=== PATIENT | male | born 1965 | race Two or more races ===

== ENCOUNTER 2025-02-13 19:08 | Inpatient (IN) | payer MEDICAID, OTHER ==
[~2025-02-13] VITALS: Ht 170.2 cm; Wt 100.0 kg
--- NOTE | 2025-02-13 19:40 | ED.PDOC ---
History of Present Illness HPI Comments This is a 59-year-old male who comes in with chief complaint of seizure activity. The patient was found by a neighbor at his home somewhat altered. The patient had some emesis and there is a concern that the patient had a seizure. The patient has had a history of alcohol use in the past and has not had a drink in the past couple of days according to his family member. He was never had a seizure in the past. When the paramedics transported the patient he did have two seizures one lasting approximately 15 seconds in the other one about the same. He was given Versed 2.5 mg IV push EN route. The patient also had an Accu-Chek of 395. Upon arrival, the patient was still postictal and unable to answer questions appropriately. Chief Complaint: Seizure Time Seen by MD: 19:14 Reviewed Notes: Nurses Notes, Marketing Technology Specialist Notes, Medications, Allergies (No allergies to medication) Allergies: Coded Allergies: NO KNOWN ALLERGIES (Unverified , 02/13/25) Information Source: Emergency Med Personnel, Spouse Mode of Arrival: EMS Severity: Moderate Timing: Hours Duration: Intermittent Prehospital treatment: 12 Lead EKG, Accucheck (395), Office Executive, IVF, Other (Versed 2.5 mg IV push) Associated signs and symptoms The patient had two seizures and now the patient was postictal Past Medical History PAST MEDICAL HISTORY: DM, High Lipids, HTN Surgical History: Denies all surgeries Family History Family History: No family hx of Cancer, No family hx of DM, No family hx of Heart neha Social History Smoker: Non-Smoker Alcohol: Heavy (The patient has been sober for three weeks) Drugs: Denies Drug Use Lives In: Home Constitutional: denies: chills, diaphoresis, fatigue, fever, malaise, sweats, weakness, others EENTM: denies: blurred vision, double vision, ear bleeding, ear discharge, ear drainage, ear pain, ear ringing, eye pain, eye redness, hearing loss, mouth pain, mouth swelling, nasal discharge, nose bleeding, nose congestion, nose pain, photophobia, tearing, throat pain, throat swelling, voice changes, others Respiratory: denies: cough, hemoptysis, orthopnea, SOB at rest, shortness of breath, SOB with excertion, stridor, wheezing, others Cardiovascular: denies: chest pain, dizzy spells, diaphoresis, Dyspnea on exertion, edema, irregular heart beat, left arm pain, lightheadedness, palpitations, PND, syncope, others Gastrointestinal: denies: abdomen distended, abdominal pain, blood streaked bowels, constipated, diarrhea, dysphagia, difficulty swallowing, hematemesis, melena, nausea, poor appetite, poor fluid intake, rectal bleeding, rectal pain, vomiting, others Genitourinary: denies: burning, dysuria, flank pain, frequency, hematuria, incontinence, penile discharge, penile sore, pain, testicle pain, testicle swelling, urgency, others Neurological: reports: seizure; denies: dizziness, fainting, headache, left sided numbness, left sided weakness, numbness, paresthesia, pre-existing deficit, right sided numbness, right sided weakness, speech problems, tingling, tremors, weakness, others Musculoskeletal: denies: back pain, gout, joint pain, joint swelling, muscle pain, muscle stiffness, neck pain, others Integumetry: denies: bruises, change in color, change in hair/nails, dryness, laceration, lesions, lumps, rash, wounds, others Allergic/Immunocompromised: denies: Difficulty Healing, Frequent Infections, Hives, Itching, others Hematologic/Lymphatic: denies: anemia, blood clots, easy bleeding, easy bruising, swollen glands, others Endocrine: denies: excessive hunger, excessive sweating, excessive thirst, excessive urination, flushing, intolerance to cold, intolerance to heat, unexplained weight gain, unexplained weight loss, others Psychiatric: denies: anxiety, bipolar disorder, depression, hopeless, panic disorder, schizophrenia, sleepless, suicidal, others Physical Exam General Appearance: Mild Distress HEENT: Normal ENT Inspection, Pharynx Normal, TMs Normal Neck: Full Range of Motion, Non-Tender, Normal, Normal Inspection Respiratory: Chest Non-Tender, Lungs Clear, No Accessory Muscle Use, No Respiratory Distress, Normal Breath Sounds Cardiovascular: No Edema, No JVD, No Murmur, No Gallop, Normal Peripheral Pulses, Regular Rate/Rhythm Breast Exam: Deferred Gastrointestinal: No Organomegaly, Non Tender, No Pulsatile Mass, Normal Bowel Sounds, Soft Genitalia: Deferred Pelvic: Deferred Rectal: Deferred Extremities: No calf tenderness, Normal capillary refill, No pedal edema Musculoskeletal : Apperance: Normal Neurologic: choker setter II-XII nml as Tested, Motor Weakness, No Sensory Deficits, Other (The patient was currently sleeping and is postictal) Cerebellar Function: Normal Reflexes: Normal Skin: Dry, Normal Color, Warm Lymphatic: No Adenopathy Was a procedure done? Was a procedure done?: No EKG EKG : Pulse Rate (adult): 106 [place]: RAD Cardiac Rhythm: ST Differential Dx Considerations may include: Seizure, withdrawal seizures, syncope, CVA X-Ray, Labs, Meds, VS Vital Signs Date Time Temp Pulse Resp B/P (MAP) Pulse Ox O2 Delivery O2 Flow Rate FiO2 02/13/25 21:49 98 16 95 Room Air* 0 21 02/13/25 21:40 98.5 98 16 108/56 (73) 95 98.5 02/13/25 19:43 106 02/13/25 19:35 106 02/13/25 19:20 99.0 100 24 117/69 (85) 99 99.0 Lab Test 02/13/25 19:23 Range/Units White Blood Count 7.7 4.4-10.8 10^3/uL Red Blood Count 4.23 L 4.5-5.90 10^6/uL Hemoglobin 12.2 L 13.5-17.5 g/dL Hematocrit 37.5 L 41.0-53.0 % Mean Corpuscular Volume 88.7 80.0-100.0 fL Mean Corpuscular Hemoglobin 28.8 28.0-32.0 pg Mean Corpuscular Hemoglobin Concent 32.5 32.0-36.0 g/dL Red Cell Distribution Width 13.0 11.8-14.3 % Platelet Count 274 140-450 10^3/uL Mean Platelet Volume 7.6 6.9-10.8 fL Neutrophils (%) (Auto) 79.0 37.0-80.0 % Lymphocytes (%) (Auto) 13.9 10.0-50.0 % Monocytes (%) (Auto) 6.6 0.0-12.0 % Eosinophils (%) (Auto) 0.3 0.0-7.0 % Basophils (%) (Auto) 0.2 0.0-2.0 % Neutrophils # (Auto) 6.0 1.6-8.6 10 ^3/uL Lymphocytes # (Auto) 1.1 0.4-5.4 10 ^3/uL Monocytes # (Auto) 0.5 0-1.3 10 ^3/uL Eosinophils # (Auto) 0 0-0.8 10 ^3/uL Basophils # (Auto) 0 0-0.2 10 ^3/uL Nucleated Red Blood Cells 0.0 % Sodium Level 132 L 136-145 mmol/L Potassium Level 4.5 3.5-5.1 mmol/L Chloride Level 98 98-107 mmol/L Carbon Dioxide Level 18 L 20-31 mmol/L Anion Gap 16 H 5-15 Blood Urea Nitrogen 29 H 9-23 mg/dL Creatinine 1.30 0.700-1.30 mg/dL Glomerular Filtration Rate Calc 63 >90 mL/min BUN/Creatinine Ratio 22.3 H 10.0-20.0 Serum Glucose 361 H 74-106 mg/dL Calcium Level 9.7 8.7-10.4 mg/dL Plasma/Serum Blood Alcohol < 3.0 <10 mg/dL Current Medications Medications (Trade) Dose Ordered Sig/Sonny Route Start Time Stop Time Status Last Admin Sodium Chloride 1,000 ml @ 1,000 mls/hr Q1H ONCE IVB 02/13/25 19:15 02/13/25 20:14 DC 02/13/25 19:51 Levetiracetam 100 ml @ 400 mls/hr ONCE ONCE IV 02/13/25 19:15 02/13/25 19:29 DC 02/13/25 19:50 IV Hep-Lock was established Seizure precautions were placed on this patient The patient was being placed on Keppra 1 g IV piggyback The patient was CAT scan of the head is negative The chest x-ray is negative The patient was has been somewhat uncooperative here in the emergency department's At this time the patient was being discharged The patient understands and agrees with the management. Images Reviewed?: Images reviewed and evaluated by me Time of 1ST Reevaluation: 19:42 Reevaluation 1ST: Unchanged Time of 2ND Reevaluation: 22:01 Reevaluation 2ND: Improved Patient Education/Counseling: Diagnosis, Treatment, Prognosis, Need For Follow Up Family Education/Counseling: Diagnosis, Treatment, Prognosis, Need For Follow Up Departure 1 Departure Time of Disposition: 19:42 Impression: Primary Impression: Alcohol withdrawal syndrome Qualified Codes: F10.930 - Alcohol use, unspecified with withdrawal, uncomplicated Additional Impression: Electrolyte imbalance Disposition: HOME / SELF CARE / HOMELESS Condition: Fair Critical Care Note Critical Care Time?: No Stability Stability form required: No Heart Score Heart Score: Heart Score Response (Comments) Value History N/A 0 EKG N/A 0 Age N/A 0 Risk Factors N/A 0 Troponin N/A 0 Total 0 RAYMUNDO POWELL MD Feb 13, 2025 19:40
[2025-02-13 19:41] LABS: Basophils # (auto) 0 10 ^3/uL (0-0.2); Basophils % (auto) 0.2 % (0.0-2.0); Eosinophils # (auto) 0 10 ^3/uL (0-0.8); Eosinophils % (auto) 0.3 % (0.0-7.0); Hematocrit 37.5 % (41.0-53.0); Hemoglobin 12.2 g/dL (13.5-17.5); Lymphocytes # (auto) 1.1 10 ^3/uL (0.4-5.4); Lymphocytes % (auto) 13.9 % (10.0-50.0); Mean Corpuscular Hemoglobin 28.8 pg (28.0-32.0); Mean Corpuscular Hgb Conc. 32.5 g/dL (32.0-36.0); Mean Corpuscular Volume 88.7 fL (80.0-100.0); Monocytes # (auto) 0.5 10 ^3/uL (0-1.3); Monocytes % (auto) 6.6 % (0.0-12.0); Platelet Count (auto) 274 10^3/uL (140-450); Red Blood Cells 4.23 10^6/uL (4.5-5.90); White Blood Cell 7.7 10^3/uL (4.4-10.8)
[2025-02-13] MEDS: levETIRAcetam 1000 mg/100ml 100 ML IV ONE (19:50)
[2025-02-13 19:51] LABS: Potassium 4.5 mmol/L (3.5-5.1)
[2025-02-13] MEDS: SODIUM CHLORIDE 0.9% 1,000 ML IVB ONE (19:51)
[2025-02-13 19:52] LABS: Anion Gap 16 (5-15); Calcium 9.7 mg/dL (8.7-10.4)
[2025-02-13 19:57] LABS: BUN/Creatinine Ratio 22.3 (10.0-20.0)
[2025-02-13 19:58] LABS: Blood Alcohol < 3.0 mg/dL (<10); Blood Urea Nitrogen 29 mg/dL (9-23); Carbon Dioxide 18 mmol/L (20-31); Chloride 98 mmol/L (98-107); Glucose 361 mg/dL (74-106); Sodium 132 mmol/L (136-145)
[2025-02-13 21:49] VITALS: PULSE 98; RESP 16; O2SAT 95
--- NOTE | 2025-02-13 21:50 | DVH ---
CHEST RADIOGRAPH Indication: seizure Technique: Single frontal view of the chest was obtained COMPARISON: None FINDINGS: Lines and Tubes: None Lungs: Clear Pleura: No effusion. No pneumothorax. Cardiomediastinal contours: Unremarkable Bones: Unremarkable IMPRESSION: No abnormality demonstrated.
--- NOTE | 2025-02-13 21:58 | DVH ---
EXAM: CT HEAD WITHOUT CONTRAST INDICATION: Seizure TECHNIQUE: CT of the head without intravenous contrast. Radiation Dose : 1. Head: CT Dose: CTDI volume is 60 mGy. Dose-length product is 1173 mGy*cm The dose indicators for CT are the volume Computed Tomography (CT) Dose Index (CTDIvol) and the Dose Length Product (DLP), and are measured in units of mGy and mGy-cm, respectively. These indicators are not patient dose, but values generated from the CT scanner acquisition factors. The report includes radiation exposure data for exposures received during this examination. COMPARISON: None FINDINGS: There is no evidence of acute intracranial hemorrhage, extra-axial collection, mass effect, midline s hift, herniation or hydrocephalus. The ventricles, sulci and cisterns are age appropriate. The kumar-white differentiation is intact. Patchy periventricular and subcortical white matter hypoattenuation is nonspecific but may be related to small vessel ischemic disease. The visualized paranasal sinuses and mastoid air cells are clear. The surrounding soft tissues and osseous structures are unremarkable. IMPRESSION: 1. No acute intracranial abnormality. Radiation optimization: All CT scans at this facility use at least one of these dose optimization lauren hniques: automated exposure control mA and/or kV adjustment per patient size (includes targeted exam s where dose is matched to clinical indication) or iterative reconstruction.
--- NOTE | 2025-02-13 21:58 | ECG ---
[facility] Test Date: 2025-02-13 Test Time: 19:35:09 Pat Name: ILANA NIELSON Department: ED Room: 0247 Gender: M Medical Social Worker: ER : 1965 Requested By: RAYMUNDO POWELL Order Number: [id number] Reading MD: Catrachito Vaughan Measurements Intervals [place] Rate: 106 P: 52 NE: 165 QRS: 110 QRSD: 92 T: 48 QT: 322 QTc: 428 Interpretive Statements Sinus tachycardia Right axis deviation Electronically Signed On 02-15-2025 13:42:46 PDT by Catrachito Vaughan Please click the below link to view image of tracing.
--- NOTE | 2025-02-13 22:25 | PRN ---
Misceleneous Note Note Note Family does not feel comfortable taking patient home, we will admit for further treatment observation and evaluation. Disposition Disposition: Admit inpatient Disposition condition: Stable Visit Coding Complete: AUGUSTINA White MD Feb 13, 2025 22:25
[2025-02-14] MEDS ORDERED: DEXTROSE (50%) 50ML SYRG IV PRN (00:15)
[2025-02-14] MEDS ORDERED: ONDANSETRON HCL 4 MG/2 ML VIAL IV PRN (00:15)
[2025-02-14 00:48] LABS: Base Excess -2.7 mmol/L (-2.0-3.0)
[2025-02-14] MEDS: FOLIC ACID 1 MG TAB PO ONE (01:35)
[2025-02-14] MEDS: THIAMINE HCL 100 MG TAB PO ONE (01:35)
[2025-02-14 03:25] VITALS: PULSE 98; RESP 18; O2SAT 96
[2025-02-14] MEDS: LORazepam 2MG/ML-1ML VIAL IV PRN (03:36)
[2025-02-14] MEDS: ACCU-CHEK COMFORT CURVE STRIP VI SCH (04:00)
[2025-02-14] MEDS: InsuLIN REG 1unit/0.01ml Soln (100units/ml) SC SCH (04:00)
--- NOTE | 2025-02-14 04:55 | DVHHP2 ---
History of Present Illness Reason for Visit: Altered mental status History of Present Illness 59-year-old male presents for evaluation of altered mental status and possible seizure activity. His son reports patient was seen at [facility] and was treated for hyperglycemia greater than 500. The son reports that since then the patient has been acting somewhat altered. He states that the patient is not able to have a full conversation and yesterday patient had what seemed to be a seizure that lasted approximately 20 seconds. Patient used to be a heavy alcoholic drinker and for the past two weeks has been cutting on the alcohol intake. Patient is currently lethargic and slow to respond. No focal deficits. No cardiac or respiratory complaints. Past Medical History Hypertension, dyslipidemia, diabetes mellitus Family History Noncontributory Smoke: No ALCOHOL: heavy (Patient has decreased intake for the past two weeks.) Drugs: None Lives: with Family Review of Systems Review of Systems Review of systems are limited due to the patient's altered mental status. Allergies: Coded Allergies: NO KNOWN ALLERGIES (Unverified , 02/13/25) Medications Current Medications Medications Dose Ordered Sig/Sonny Route Start Time Stop Time Status Last Admin Dose Admin Thiamine HCl 100 mg DAILY PO 02/14/25 10:00 Folic Acid 1 mg DAILY PO 02/14/25 10:00 Levetiracetam 500 mg BID PO 02/14/25 10:00 Lorazepam 1 mg Q5MINP PRN IV 02/14/25 00:15 02/14/25 03:36 1 MG Atorvastatin Calcium 40 mg HS PO 02/14/25 22:00 Diagnostic Test (Pha) 1 strip IQ4HR 02/14/25 04:00 02/14/25 04:00 1 STRIP Insulin Human Regular IQ4HR SC 02/14/25 04:00 Dextrose 50 ml UD PRN IV 02/14/25 00:15 Ondansetron HCl 4 mg Q4HP PRN IV 02/14/25 00:15 Acetaminophen 650 mg Q6HP PRN PO 02/14/25 00:30 Exam Vital Signs Vital Signs Date Time Temp Pulse Resp B/P (MAP) Pulse Ox O2 Delivery O2 Flow Rate FiO2 02/14/25 03:30 88 18 140/73 (95) 94 02/14/25 03:25 Room Air* 0 21 02/14/25 01:10 97.9 97.9 Exam Gen: 59-year-old male in mild Skin: Warm, dry, normal color and texture, no rash. HEENT: Normocephalic atraumatic, mucous membranes moist and pink. Neck: Cervical and supraclavicular nodes normal without enlargement, trachea is midline, thyroid gland is normal without masses. Pulmonary: Clear to auscultation and percussion bilaterally. Cardiac: Regular rate and rhythm. No murmur Abdomen: Soft, nontender, nondistended, bowel sounds present all 4 quadrants, no guarding, no rigidity, no organomegaly. Extremities: No cyanosis, clubbing, no edema Neuro: Lethargic, no focal deficits Labs/Xrays ORDERING PHYSICIAN: RAYMUNDO POWELL MD PROCEDURE(s): CXRP - CHEST PORTABLE REASON: seizure ORDER NUMBER(s): [id number], ACCESSION NUMBER(s): [id number] CHEST RADIOGRAPH Indication: seizure Technique: Single frontal view of the chest was obtained COMPARISON: None FINDINGS: Lines and Tubes: None Lungs: Clear Pleura: No effusion. No pneumothorax. Cardiomediastinal contours: Unremarkable Bones: Unremarkable IMPRESSION: No abnormality demonstrated. RING PHYSICIAN: RAYMUNDO POWELL MD PROCEDURE(s): HWOCT - HEAD WITHOUT CONTRAST REASON: Seizure ORDER NUMBER(s): [id number], ACCESSION NUMBER(s): [id number] EXAM: CT HEAD WITHOUT CONTRAST INDICATION: Seizure TECHNIQUE: CT of the head without intravenous contrast. Radiation Dose : 1. Head: CT Dose: CTDI volume is 60 mGy. Dose-length product is 1173 mGy*cm The dose indicators for CT are the volume Computed Tomography (CT) Dose Index (CTDIvol) and the Dose Length Product (DLP), and are measured in units of mGy and mGy-cm, respectively. These indicators are not patient dose, but values generated from the CT scanner acquisition factors. The report includes radiation exposure data for exposures received during this examination. COMPARISON: None FINDINGS: There is no evidence of acute intracranial hemorrhage, extra-axial collection, mass effect, midline shift, herniation or hydrocephalus. The ventricles, sulci and cisterns are age appropriate. The kumar-white differentiation is intact. Patchy periventricular and subcortical white matter hypoattenuation is nonspecific but may be related to small vessel ischemic disease. The visualized paranasal sinuses and mastoid air cells are clear. The surrounding soft tissues and osseous structures are unremarkable. IMPRESSION: 1. No acute intracranial abnormality. Radiation optimization: All CT scans at this facility use at least one of these dose optimization techniques: automated exposure control mA and/or kV adjustment per patient size (includes targeted exams where dose is matched to clinical indication) or iterative reconstruction. Labs Test 02/14/25 04:16 02/14/25 00:39 02/13/25 19:23 Range/Units POC Glucose 95 70-106 mg/dl Blood Gas Specimen Type Arterial Blood Gas Sample Site Left radial Blood Gas Patient Temperature 37.0 Arterial Blood Date Drawn [id number] Arterial Blood pH 7.458 H 7.350-7.450 Arterial Blood Partial Pressure CO2 29.1 L 35.0-48.0 mmHg Arterial Blood Partial Pressure O2 83.8 83.0-108.0 mmHg Arterial Blood HCO3 20.1 L 21.0-28.0 mmol/L Arterial Blood Oxygen Saturation 95.7 94.0-98.0 % Arterial Blood Base Excess -2.7 L -2.0-3.0 mmol/L Arterial Blood Oxyhemoglobin 94.7 94.0-98.0 % Arterial Blood Carboxyhemoglobin 0.8 0.5-1.5 % Arterial Blood Methemoglobin 0.2 0.0-1.5 % Greg Test Yes Blood Gas Total Hemoglobin 12.00 L 13.5-17.5 g/dL Blood Gas Liter Flow 0.00 Blood Gas Modality Room air FiO2 % 21.0 White Blood Count 7.7 4.4-10.8 10^3/uL Red Blood Count 4.23 L 4.5-5.90 10^6/uL Hemoglobin 12.2 L 13.5-17.5 g/dL Hematocrit 37.5 L 41.0-53.0 % Mean Corpuscular Volume 88.7 80.0-100.0 fL Mean Corpuscular Hemoglobin 28.8 28.0-32.0 pg Mean Corpuscular Hemoglobin Concent 32.5 32.0-36.0 g/dL Red Cell Distribution Width 13.0 11.8-14.3 % Platelet Count 274 140-450 10^3/uL Mean Platelet Volume 7.6 6.9-10.8 fL Neutrophils (%) (Auto) 79.0 37.0-80.0 % Lymphocytes (%) (Auto) 13.9 10.0-50.0 % Monocytes (%) (Auto) 6.6 0.0-12.0 % Eosinophils (%) (Auto) 0.3 0.0-7.0 % Basophils (%) (Auto) 0.2 0.0-2.0 % Neutrophils # (Auto) 6.0 1.6-8.6 10 ^3/uL Lymphocytes # (Auto) 1.1 0.4-5.4 10 ^3/uL Monocytes # (Auto) 0.5 0-1.3 10 ^3/uL Eosinophils # (Auto) 0 0-0.8 10 ^3/uL Basophils # (Auto) 0 0-0.2 10 ^3/uL Nucleated Red Blood Cells 0.0 % Sodium Level 132 L 136-145 mmol/L Potassium Level 4.5 3.5-5.1 mmol/L Chloride Level 98 98-107 mmol/L Carbon Dioxide Level 18 L 20-31 mmol/L Anion Gap 16 H 5-15 Blood Urea Nitrogen 29 H 9-23 mg/dL Creatinine 1.30 0.700-1.30 mg/dL Glomerular Filtration Rate Calc 63 >90 mL/min BUN/Creatinine Ratio 22.3 H 10.0-20.0 Serum Glucose 361 H 74-106 mg/dL Calcium Level 9.7 8.7-10.4 mg/dL Beta-Hydroxybutyric Acid 0.210 < 0.4 mmol/L Plasma/Serum Blood Alcohol < 3.0 <10 mg/dL Assessment/Plan Assessment/Plan Assessment Seizure activity ? Alcohol withdrawal Uncontrolled diabetes mellitus Hypertension Plan Admit the patient to [facility] to the hospitalist Neurology consultation MRI of the brain pending Thiamine/folic acid Resume home medications Continue treatment per orders. Plan discussed with: Patient My Orders Orders - RENALDO ESPINOZA Procedure Category Date Status Time Admit ADMIT 02/13/25 Transmitted 23:40 Abg W/ Co-Ox RT 02/14/25 Logged 00:08 * Neurology Consult CONS 02/14/25 Transmitted 00:08 Thiamine Tab PHA 02/14/25 In Process 10:00 Folic Acid Tablet PHA 02/14/25 In Process 10:00 Levetiracetam Tablet PHA 02/14/25 In Process (Keppra Tablet) 10:00 Lorazepam 2mg/Ml Inj PHA 02/14/25 In Process (Ativan Inj) 00:15 Seizure Precautions [place] 02/14/[address] 00:08 Atorvastatin (Lipitor) PHA 02/14/25 In Process 22:00 Basic Metabolic Panel LAB 02/15/25 Verified 04:00 Glucose Blood PHA 02/14/25 In Process (Accu-Chek Comfort 04:00 Insulin R (Human) PHA 02/14/25 In Process (Insulin R) 04:00 Dextrose 50% Syringe PHA 02/14/25 In Process 00:15 Ondansetron Hcl PHA 02/14/25 In Process (Zofran) 00:15 Complete Blood Count LAB 02/15/25 Verified 04:00 Cardiac DIET 02/14/25 Transmitted Diet-2gna,Lofat,Lochol Breakfast Condition: Stable [place] 02/14/25 In Process 00:08 Acetaminophen Tablet PHA 02/14/25 In Process (Tylenol Tablet) 00:30 Bedrest With Bathroom [place] 02/14/25 In Process Privileg 00:08 Comprehensive LAB 02/14/25 Logged Metabolic Panel 04:00 Date of Service: Feb 13, 2025 Billing Provider: RENALDO ESPINOZA Common Visit Codes: [id number] INP/OBS CARE (HIGH) RENALDO ESPINOZA Feb 14, 2025 04:55
[2025-02-14 07:09] LABS: Alanine Aminotransferase 23 U/L (7-40); Alkaline Phosphatase 88 U/L (46-116); Anion Gap 8 (5-15); Aspartate Aminotransferase 14 U/L (13-40); BUN/Creatinine Ratio 24.4 (10.0-20.0); Blood Urea Nitrogen 21 mg/dL (9-23); Calcium 9.4 mg/dL (8.7-10.4); Carbon Dioxide 25 mmol/L (20-31); Chloride 106 mmol/L (98-107); Glucose 95 mg/dL (74-106); Potassium 3.9 mmol/L (3.5-5.1); Sodium 139 mmol/L (136-145); Total Protein 6.2 g/dL (5.7-8.2)
[2025-02-14 08:02] VITALS: PULSE 84; RESP 16; O2SAT 94
--- NOTE | 2025-02-14 09:22 | DVHINCON2 ---
Date of service: Feb 14, 2025 Referring Physician Atul Reason for Consultation ? seizure, AMS History of Present Illness Mr. Snyder is a 59 years old right-handed gentleman with a history of hypertension, diabetes, dyslipidemia, chronic alcohol abuser, he was brought to the [facility] on 02/13/2025 with a chief company of seizure activity, at this time, he was alert, but is only oriented to himself, the hist ory is obtained from his family. Poor historian On 02/13/2025, he had three spells event where he was nonresponsive, shaking in the arms, body for 2-3 minutes, with urinary incontinence. According to a video in his 's smart phone, the shaking was generalized, but not intense, and not very typical to seizure/grand mal seizure. At home, he sugar level was more jaime n 400 About four days ago, he had a similar but less intense dependent He was never had seizure or similar event previously He quickly alcohol three weeks ago He was memory and mentation were normal till the beginning of 2024, with the family noticed mild memory problem, which has been very obvious for one week Plasma alcohol, 02/14/2025: <0.3 ABG, 02/14/2025: Respiratory alkalosis WBC/HB/PLT/MCV, 02/13/2025, 7.7/12.2/274/88.7 CMP, 02/14/2025: Unremarkable CT head, 02/13/2025: No acute intracranial abnormality Past Medical History Hypertension, diabetes, dyslipidemia Past Surgical History None Family History No seizure, alcohol problem or other major medical problems Social History He was no history of tobacco smoking, or drug abuse. He was a long time heavy alcohol drinker, sober x three weeks (end of 12/2024) Allergies: Coded Allergies: NO KNOWN ALLERGIES (Unverified , 02/13/25) Current Medications Current Medications Medications (Trade) Dose Ordered Sig/Sonny Route PRN Reason Start Time Stop Time Status Last Admin Thiamine HCl 100 mg DAILY PO 02/14/25 10:00 Folic Acid 1 mg DAILY PO 02/14/25 10:00 Levetiracetam (Keppra Tablet) 500 mg BID PO 02/14/25 10:00 Lorazepam (Ativan Inj) 1 mg Q5MINP PRN IV SEIZURES 02/14/25 00:15 02/14/25 03:36 Atorvastatin Calcium (Lipitor) 40 mg HS PO 02/14/25 22:00 Diagnostic Test (Pha) (Accu-Chek Comfort Curve T) 1 strip IQ4HR 02/14/25 04:00 02/14/25 08:15 Insulin Human Regular (InsuLIN R) IQ4HR SC 02/14/25 04:00 Dextrose 50 ml UD PRN IV Blood Sugar LESS THAN 60 02/14/25 00:15 Ondansetron HCl (Zofran) 4 mg Q4HP PRN IV NAUSEA / VOMITING 02/14/25 00:15 Acetaminophen (Tylenol Tablet) 650 mg Q6HP PRN PO PAIN SCALE 1-3 OR TEMP>100.4 02/14/25 00:30 Chlordiazepoxide HCl (Librium Capsule) 25 mg Q6HPRN PRN PO ALCOHOL WITHDRAWAL SYMPTOMS 02/14/25 05:00 Review of Systems As above, the other systems are negative Vital Signs Vital Signs Date Time Temp Pulse Resp B/P (MAP) Pulse Ox O2 Delivery O2 Flow Rate FiO2 02/14/25 08:02 84 16 94 Room Air* 0 21 02/14/25 07:52 97.8 138/80 (99) 97.8 Physical Exam GENERAL EXAM: General: the patient is well developed and nourished. No acute distress. HEENT: Normocephalic, neck is supple, no carotid bruits. No mass RESPIRATORY: Normal respiratory effort with symmetrical lung expansion. Lungs clear to auscultation. CARDIOVASCULAR: Regular rate and rhythm with no murmurs. S1, S2. ABDOMEN: Soft, nontender, normal bowel sound NEUROLOGICAL: MENTAL STATUS: Awake and alert. Only oriented to himself, not sure if he recognizes his family SPEECH, LANGUAGE, HIGHER CORTICAL FUNCTION: no aphasia or dysathria. CRANIAL NERVES: #2: Intact visual cedeño to confrontation. The optic discs were sharp.. #3,4,6: Pupils are equal, round and reactive. EOMs full and conjugate. Spontaneous horizontal nystagmus. #5: Facial sensation intact in all three divisions bilaterally. Mandibular strength intact. #7: Facial muscles symmetrical and strength intact. #8: Hearing grossly normal to voice. #9,10: Uvula and soft palate rise in the midline. Swallow and voice are normal. #11: Trapezius and sternomastoid strength intact bilaterally. #12: Tongue midline. No fasciculations or atrophy. SENSATION: Sensation to touch and pinprick is normal. MOTOR: Normal tone in the upper and lower extremity. Normal muscle bulk. No fasciculations. No abnormal movements or posturing. Muscle strength of the major groups in the upper extremities is 5/5. Muscle strength of the major groups in the lower extremities is 5/5. REFLEXES: Deep tendon reflexes are symmetrical. No pathological reflexes. CEREBELLAR/COORDINATION: Finger to nose is normal bilaterally. GAIT/STATION: deferred. Labs/Diagnostic Data Labs Test 02/14/25 08:14 02/14/25 06:27 02/14/25 00:39 02/13/25 19:23 Range/Units POC Glucose 102 70-106 mg/dl Sodium Level 139 # 136-145 mmol/L Potassium Level 3.9 3.5-5.1 mmol/L Chloride Level 106 98-107 mmol/L Carbon Dioxide Level 25 20-31 mmol/L Anion Gap 8 5-15 Blood Urea Nitrogen 21 9-23 mg/dL Creatinine 0.86 0.700-1.30 mg/dL Glomerular Filtration Rate Calc 99 >90 mL/min BUN/Creatinine Ratio 24.4 H 10.0-20.0 Serum Glucose 95 # 74-106 mg/dL Calcium Level 9.4 8.7-10.4 mg/dL Total Bilirubin 1.0 0.2-1.0 mg/dL Aspartate Amino Transferase (AST) 14 13-40 U/L Alanine Aminotransferase (ALT) 23 7-40 U/L Alkaline Phosphatase 88 46-116 U/L Total Protein 6.2 5.7-8.2 g/dL Albumin 4.0 3.2-4.8 g/dL Blood Gas Specimen Type Arterial Blood Gas Sample Site Left radial Blood Gas Patient Temperature 37.0 Arterial Blood Date Drawn [id number] Arterial Blood pH 7.458 H 7.350-7.450 Arterial Blood Partial Pressure CO2 29.1 L 35.0-48.0 mmHg Arterial Blood Partial Pressure O2 83.8 83.0-108.0 mmHg Arterial Blood HCO3 20.1 L 21.0-28.0 mmol/L Arterial Blood Oxygen Saturation 95.7 94.0-98.0 % Arterial Blood Base Excess -2.7 L -2.0-3.0 mmol/L Arterial Blood Oxyhemoglobin 94.7 94.0-98.0 % Arterial Blood Carboxyhemoglobin 0.8 0.5-1.5 % Arterial Blood Methemoglobin 0.2 0.0-1.5 % Greg Test Yes Blood Gas Total Hemoglobin 12.00 L 13.5-17.5 g/dL Blood Gas Liter Flow 0.00 Blood Gas Modality Room air FiO2 % 21.0 White Blood Count 7.7 4.4-10.8 10^3/uL Red Blood Count 4.23 L 4.5-5.90 10^6/uL Hemoglobin 12.2 L 13.5-17.5 g/dL Hematocrit 37.5 L 41.0-53.0 % Mean Corpuscular Volume 88.7 80.0-100.0 fL Mean Corpuscular Hemoglobin 28.8 28.0-32.0 pg Mean Corpuscular Hemoglobin Concent 32.5 32.0-36.0 g/dL Red Cell Distribution Width 13.0 11.8-14.3 % Platelet Count 274 140-450 10^3/uL Mean Platelet Volume 7.6 6.9-10.8 fL Neutrophils (%) (Auto) 79.0 37.0-80.0 % Lymphocytes (%) (Auto) 13.9 10.0-50.0 % Monocytes (%) (Auto) 6.6 0.0-12.0 % Eosinophils (%) (Auto) 0.3 0.0-7.0 % Basophils (%) (Auto) 0.2 0.0-2.0 % Neutrophils # (Auto) 6.0 1.6-8.6 10 ^3/uL Lymphocytes # (Auto) 1.1 0.4-5.4 10 ^3/uL Monocytes # (Auto) 0.5 0-1.3 10 ^3/uL Eosinophils # (Auto) 0 0-0.8 10 ^3/uL Basophils # (Auto) 0 0-0.2 10 ^3/uL Nucleated Red Blood Cells 0.0 % Beta-Hydroxybutyric Acid 0.210 < 0.4 mmol/L Plasma/Serum Blood Alcohol < 3.0 <10 mg/dL Assessment Episodic event Grand mal seizure Alcohol withdrawal seizure Status epileptics Wernicke's encephalopathy Cognitive dysfunction, ? Korsakoff disease Nystagmus, ? secondary to Wernicke's encephalopathy Plan/Recommendation Monitoring Supportive treatment Telemetry UDS EEG MR brain scan Thiamine supplementation Folic acid supplementation Elly for the time being Ativan for seizure breakthrough Quit alcohol completely More recommendation per clinical course Plan discussed with: Spouse, Other CLEMENTINA LYNN MD Feb 14, 2025 09:22
[2025-02-14] MEDS: FOLIC ACID 1 MG TAB PO SCH (10:08)
[2025-02-14] MEDS: levETIRAcetam 500 MG TAB PO SCH (10:08)
[2025-02-14] MEDS: THIAMINE HCL 100 MG TAB PO SCH (10:08)
[2025-02-14 14:37] LABS: Barbiturate Scree,Urine Neg (NEGATIVE); Benzodiazephine Screen, Urine Neg (NEGATIVE); Opiate Scree,Urine Neg (NEGATIVE); Phencyclidine Screen, Urine Neg (NEGATIVE)
[2025-02-14 14:38] LABS: Amphetamine Screen, Urine Neg (NEGATIVE); Cannabinoid Screen, Urine Neg (NEGATIVE); Cocaine Screen, Urine Neg (NEGATIVE)
[2025-02-14] MEDS: ACETAMINOPHEN 325 MG TAB PO PRN (16:38)
[2025-02-14 17:40] VITALS: BP 167/79; PULSE 87; RESP 18; TEMP 98.3; O2SAT 97
[2025-02-14] MEDS: chlordiazePOXIDE HCL 25 MG CAP PO PRN (20:44)
[2025-02-14] MEDS: ATORVASTATIN 20 MG TAB PO SCH (20:45)
[2025-02-15 05:00] VITALS: BP 128/71; PULSE 87; RESP 18; TEMP 97.8; O2SAT 99
[2025-02-15] MEDS: LORazepam 2MG/ML-1ML VIAL IV PRN ×2 (07:28→13:58)
[2025-02-15 08:01] LABS: Basophils # (auto) 0.1 10 ^3/uL (0-0.2); Basophils % (auto) 0.6 % (0.0-2.0); Eosinophils # (auto) 0.1 10 ^3/uL (0-0.8); Eosinophils % (auto) 0.9 % (0.0-7.0); Hematocrit 40.8 % (41.0-53.0); Hemoglobin 13.8 g/dL (13.5-17.5); Lymphocytes # (auto) 2.2 10 ^3/uL (0.4-5.4); Lymphocytes % (auto) 27.8 % (10.0-50.0); Mean Corpuscular Hemoglobin 29.7 pg (28.0-32.0); Mean Corpuscular Hgb Conc. 33.8 g/dL (32.0-36.0); Mean Corpuscular Volume 87.9 fL (80.0-100.0); Monocytes # (auto) 0.6 10 ^3/uL (0-1.3); Monocytes % (auto) 7.3 % (0.0-12.0); Neutrophils % (auto) 63.4 % (37.0-80.0); Nucleated Red Blood Cells % 0.1 %; Platelet Count (auto) 285 10^3/uL (140-450); Red Blood Cells 4.64 10^6/uL (4.5-5.90); White Blood Cell 7.8 10^3/uL (4.4-10.8)
[2025-02-15 08:09] LABS: Anion Gap 10 (5-15); Carbon Dioxide 25 mmol/L (20-31); Chloride 101 mmol/L (98-107); Potassium 3.9 mmol/L (3.5-5.1); Sodium 136 mmol/L (136-145)
[2025-02-15 08:11] LABS: Calcium 10.4 mg/dL (8.7-10.4)
[2025-02-15 08:15] LABS: Blood Urea Nitrogen 21 mg/dL (9-23)
[2025-02-15 08:17] LABS: Glucose 168 mg/dL (74-106)
--- NOTE | 2025-02-15 18:21 | DVHPN2 ---
Progress Note - Dictate Date Seen: Feb 15, 2025 Medical Necessity Reason Pt with a Central, PICC or Fol: No Subjective Mr. Snyder is a 59 years old right-handed gentleman with a history of hypertension, diabetes, dyslipidemia, chronic alcohol abuser, he was brought to the [facility] on 02/13/2025 with a chief company of seizure activity I have seen and examined the patient, discussed with his nurse, in the room with him. He was awake, happy, but is only oriented to person I do not see nystagmus today, otherwise his physical examination unremarkable Plasma alcohol, 02/14/2025: <0.3 He was, 02/14/2025: Negative ABG, 02/14/2025: Respiratory alkalosis WBC/HB/PLT/MCV, 02/13/2025, 7.7/12.2/274/88.7 CMP, 02/14/2025: Unremarkable CT head, 02/13/2025: No acute intracranial abnormality vital signs Vital Sign Date Time Temp Pulse Resp B/P (MAP) Pulse Ox O2 Delivery O2 Flow Rate FiO2 02/15/25 05:00 97.8 87 18 128/71 (90) 99 97.8 02/14/25 08:02 Room Air* 0 21 Total Intake and Output 02/14/25 02/14/25 02/15/25 15:00 23:00 07:00 Intake Total 120 ml Balance 120 ml medications Current Medications Medications Dose Ordered Sig/Sonny Route Start Time Stop Time Status Last Admin Dose Admin Thiamine HCl 100 mg DAILY PO 02/14/25 10:00 02/15/25 10:17 100 MG Folic Acid 1 mg DAILY PO 02/14/25 10:00 02/15/25 10:17 1 MG Levetiracetam 500 mg BID PO 02/14/25 10:00 02/15/25 10:17 500 MG Lorazepam 1 mg Q5MINP PRN IV 02/14/25 00:15 02/15/25 01:39 1 MG Atorvastatin Calcium 40 mg HS PO 02/14/25 22:00 02/14/25 20:45 40 MG Diagnostic Test (Pha) 1 strip IQ4HR 02/14/25 04:00 02/15/25 17:04 1 STRIP Insulin Human Regular IQ4HR SC 02/14/25 04:00 02/15/25 17:04 3 UNITS Dextrose 50 ml UD PRN IV 02/14/25 00:15 Ondansetron HCl 4 mg Q4HP PRN IV 02/14/25 00:15 Acetaminophen 650 mg Q6HP PRN PO 02/14/25 00:30 02/14/25 16:38 650 MG Chlordiazepoxide HCl 25 mg Q6HPRN PRN PO 02/14/25 05:00 02/14/25 20:44 25 MG Lorazepam 1 mg ONCE PRN IV 02/14/25 10:45 02/15/25 13:58 1 MG Lorazepam 1 mg Q2HPRN PRN IV 02/15/25 02:00 02/15/25 07:28 1 MG objective General: the patient is well developed and nourished. No acute distress. MENTAL STATUS: Subjective SPEECH, LANGUAGE, HIGHER CORTICAL FUNCTION: no aphasia or dysathria. CRANIAL NERVES: Pupils are equal, round and reactive. EOMs full and conjugate. No nystagmus. Facial sensation intact in all three divisions bilaterally. Mandibular strength intact. Facial muscles symmetrical and strength intact. SENSATION: Sensation to touch and pinprick is normal. MOTOR: Normal tone in the upper and lower extremity. Normal muscle bulk. No fasciculations. No abnormal movements or posturing. Muscle strength of the major groups in the extremities is 5/5. REFLEXES: Deep tendon reflexes are symmetrical. No pathological reflexes. CEREBELLAR/COORDINATION: Finger to nose is normal bilaterally. GAIT/STATION: deferred. laboratory and microbiology Laboratory Tests 02/15/25 06:23 Test 02/15/25 06:23 Range/Units Serum Glucose 168 H 74-106 mg/dL Problem List Episodic event Grand mal seizure Alcohol withdrawal seizure Status epileptics Wernicke's encephalopathy Cognitive dysfunction, ? Korsakoff disease Nystagmus, ? secondary to Wernicke's encephalopathy Assessment/Plan Monitoring Supportive treatment Telemetry UDS EEG MRI brain scan (could not low flat for MRI on 02/15/2025) Thiamine supplementation Folic acid supplementation Keppra for the time being Ativan for seizure breakthrough Quit alcohol completely More recommendation per clinical course Prognosis: Poor This medical document was created using an electronic medical record system with [employer] dictation system. Although this document has been carefully reviewed, there may still be some phonetic and typographical errors. These areas are purely typographical due to imperfections of the software programs, and do not reflect any compromise in the patient's medical care. Prognosis poor Plan discussed with: Other CLEMENTINA LYNN MD Feb 15, 2025 18:21
[2025-02-15 20:00] VITALS: RESP 18; O2SAT 95
[2025-02-15 21:00] VITALS: BP 119/62; PULSE 110; RESP 20; TEMP 100.7; O2SAT 97
[2025-02-16] MEDS ORDERED: ATOR20TA50 PO (11:08)
[2025-02-16] MEDS ORDERED: KEP500T PO (11:08)
[2025-02-16 20:00] VITALS: RESP 15
[2025-02-16 21:00] VITALS: BP 105/55; PULSE 93; RESP 18
--- NOTE | 2025-02-16 22:44 | DVHPN2 ---
Progress Note - Dictate Date Seen: Feb 16, 2025 Medical Necessity Reason Pt with a Central, PICC or Fol: No Subjective Mr. Snyder is a 59 years old right-handed gentleman with a history of hypertension, diabetes, dyslipidemia, chronic alcohol abuser, he was brought to the [facility] on 02/13/2025 with a chief company of seizure activity I have seen and examined the patient, discussed with his nurse, denise. He is and sleeping. Early when he was awake, he was only oriented to person, he was had visual hallucination Last night, he was agitated, and was given Ativan Plasma alcohol, 02/14/2025: <0.3 He was, 02/14/2025: Negative ABG, 02/14/2025: Respiratory alkalosis WBC/HB/PLT/MCV, 02/13/2025, 7.7/12.2/274/88.7 CMP, 02/14/2025: Unremarkable CT head, 02/13/2025: No acute intracranial abnormality vital signs Vital Sign Date Time Temp Pulse Resp B/P (MAP) Pulse Ox O2 Delivery O2 Flow Rate FiO2 02/16/25 21:00 93 18 105/55 (72) 02/16/25 20:00 Room Air* 0 21 02/15/25 21:00 100.7 97 100.7 Total Intake and Output 02/15/25 02/15/25 02/16/25 15:00 23:00 07:00 Intake Total 660 ml 240 ml Balance 660 ml 240 ml medications Current Medications Medications Dose Ordered Sig/Sonny Route Start Time Stop Time Status Last Admin Dose Admin Thiamine HCl 100 mg DAILY PO 02/14/25 10:00 02/16/25 09:29 100 MG Folic Acid 1 mg DAILY PO 02/14/25 10:00 02/16/25 09:29 1 MG Levetiracetam 500 mg BID PO 02/14/25 10:00 02/16/25 09:29 500 MG Lorazepam 1 mg Q5MINP PRN IV 02/14/25 00:15 02/15/25 01:39 1 MG Atorvastatin Calcium 40 mg HS PO 02/14/25 22:00 02/16/25 00:57 40 MG Diagnostic Test (Pha) 1 strip IQ4HR 02/14/25 04:00 02/16/25 20:08 1 STRIP Insulin Human Regular IQ4HR SC 02/14/25 04:00 02/16/25 22:09 8 UNITS Dextrose 50 ml UD PRN IV 02/14/25 00:15 Ondansetron HCl 4 mg Q4HP PRN IV 02/14/25 00:15 Acetaminophen 650 mg Q6HP PRN PO 02/14/25 00:30 02/14/25 16:38 650 MG Chlordiazepoxide HCl 25 mg Q6HPRN PRN PO 02/14/25 05:00 02/14/25 20:44 25 MG Lorazepam 1 mg ONCE PRN IV 02/14/25 10:45 02/15/25 13:58 1 MG Lorazepam 1 mg Q2HPRN PRN IV 02/15/25 02:00 02/16/25 16:33 1 MG objective General: the patient is well developed and nourished. No acute distress. MENTAL STATUS: Subjective SPEECH, LANGUAGE, HIGHER CORTICAL FUNCTION: no aphasia or dysathria. CRANIAL NERVES: Pupils are equal, round and reactive. EOMs full and conjugate. No nystagmus. Facial sensation intact in all three divisions bilaterally. Mandibular strength intact. Facial muscles symmetrical and strength intact. SENSATION: Sensation to touch and pinprick is normal. MOTOR: Normal tone in the upper and lower extremity. Normal muscle bulk. No fasciculations. No abnormal movements or posturing. Muscle strength of the major groups in the extremities is 5/5. REFLEXES: Deep tendon reflexes are symmetrical. No pathological reflexes. CEREBELLAR/COORDINATION: Finger to nose is normal bilaterally. GAIT/STATION: deferred. laboratory and microbiology Laboratory Tests 02/15/25 06:23 Test 02/15/25 06:23 Range/Units Serum Glucose 168 H 74-106 mg/dL Problem List Episodic event Grand mal seizure Alcohol withdrawal seizure Status epileptics Wernicke's encephalopathy Cognitive dysfunction, ? Korsakoff disease Nystagmus, ? secondary to Wernicke's encephalopathy Assessment/Plan Monitoring Supportive treatment Telemetry UDS EEG MRI brain scan (could not low flat for MRI on 02/15/2025) Thiamine supplementation Folic acid supplementation Keppra for the time being Ativan for seizure breakthrough Quit alcohol completely More recommendation per clinical course Prognosis: Poor This medical document was created using an electronic medical record system with [employer] dictation system. Although this document has been carefully reviewed, there may still be some phonetic and typographical errors. These areas are purely typographical due to imperfections of the software programs, and do not reflect any compromise in the patient's medical care. Prognosis poor Plan discussed with: Other CLEMENTINA LYNN MD Feb 16, 2025 22:44
[2025-02-17 05:00] VITALS: BP 101/73; PULSE 85; RESP 19; TEMP 98.4; O2SAT 100
[2025-02-17 09:00] VITALS: BP 103/68; PULSE 85; RESP 16; TEMP 98.1; O2SAT 97
--- NOTE | 2025-02-17 12:09 | DVHPN2 ---
Reviewed: Care Plan, H&P, Labs, Medications Changes from previous H/P or p: No Changes General: Per HPI Objective Vitals Vital Signs Date Time Temp Pulse Resp B/P (MAP) Pulse Ox O2 Delivery O2 Flow Rate FiO2 02/17/25 09:00 98.1 85 16 103/68 (80) 97 98.1 02/17/25 08:00 Room Air* 0 21 Intake/Output Intake and Output 02/17/25 07:00 Intake Total 886 ml Output Total 500 ml Balance 386 ml Intake Oral 886 ml Output Urine Total 500 ml # Voids 2 General Appearance: Alert, Cooperative Cardiovascular: Regular rate, Normal S1, Normal S2 Abdomen: Normal bowel sounds, Soft Medications Current Medications Medications Dose Ordered Sig/Sonny Route Start Time Stop Time Status Last Admin Dose Admin Thiamine HCl 100 mg DAILY PO 02/14/25 10:00 02/17/25 11:19 100 MG Folic Acid 1 mg DAILY PO 02/14/25 10:00 02/17/25 11:19 1 MG Levetiracetam 500 mg BID PO 02/14/25 10:00 02/17/25 11:19 500 MG Lorazepam 1 mg Q5MINP PRN IV 02/14/25 00:15 02/15/25 01:39 1 MG Atorvastatin Calcium 40 mg HS PO 02/14/25 22:00 02/16/25 00:57 40 MG Diagnostic Test (Pha) 1 strip IQ4HR 02/14/25 04:00 02/17/25 08:25 1 STRIP Insulin Human Regular IQ4HR SC 02/14/25 04:00 02/17/25 08:46 2 UNITS Dextrose 50 ml UD PRN IV 02/14/25 00:15 Ondansetron HCl 4 mg Q4HP PRN IV 02/14/25 00:15 Acetaminophen 650 mg Q6HP PRN PO 02/14/25 00:30 02/14/25 16:38 650 MG Chlordiazepoxide HCl 25 mg Q6HPRN PRN PO 02/14/25 05:00 02/14/25 20:44 25 MG Lorazepam 1 mg ONCE PRN IV 02/14/25 10:45 02/15/25 13:58 1 MG Lorazepam 1 mg Q2HPRN PRN IV 02/15/25 02:00 02/17/25 08:36 1 MG Laboratory Results Laboratory Tests 02/15/25 06:23 Labs and/or images reviewed: Labs reviewed by me, Image(s) reviewed by me Assessment/Plan Assessment/Plan 59-year-old male presents for evaluation of altered mental status and possible seizure activity. His son reports patient was seen at [facility] and was treated for hyperglycemia greater than 500. The son reports that since then the patient has been acting somewhat altered. He states that the patient is not able to have a full conversation and yesterday patient had what seemed to be a seizure that lasted approximately 20 seconds. Patient used to be a heavy alcoholic drinker and for the past two weeks has been cutting on the alcohol intake. Patient is currently lethargic and slow to respond. No focal deficits. No cardiac or respiratory complaints. Seizure activity ? Alcohol withdrawal Uncontrolled diabetes mellitus Hypertension weakness protein-calorie malnutrition failure to thrive Plan discussed with: Patient Date of Service: Feb 15, 2025 Billing Provider: HENNY NIÑO DO Common Visit Codes: [id number] INP/OBS CARE(HIGH) HENNY NIÑO DO Feb 17, 2025 12:09
--- NOTE | 2025-02-17 12:11 | DVHPN2 ---
Reviewed: Care Plan, H&P, Labs, Medications Changes from previous H/P or p: No Changes General: Per HPI Objective Vitals Vital Signs Date Time Temp Pulse Resp B/P (MAP) Pulse Ox O2 Delivery O2 Flow Rate FiO2 02/17/25 09:00 98.1 85 16 103/68 (80) 97 98.1 02/17/25 08:00 Room Air* 0 21 Intake/Output Intake and Output 02/17/25 07:00 Intake Total 886 ml Output Total 500 ml Balance 386 ml Intake Oral 886 ml Output Urine Total 500 ml # Voids 2 General Appearance: Alert, Cooperative Cardiovascular: Regular rate, Normal S1, Normal S2 Abdomen: Normal bowel sounds, Soft Medications Current Medications Medications Dose Ordered Sig/Sonny Route Start Time Stop Time Status Last Admin Dose Admin Thiamine HCl 100 mg DAILY PO 02/14/25 10:00 02/17/25 11:19 100 MG Folic Acid 1 mg DAILY PO 02/14/25 10:00 02/17/25 11:19 1 MG Levetiracetam 500 mg BID PO 02/14/25 10:00 02/17/25 11:19 500 MG Lorazepam 1 mg Q5MINP PRN IV 02/14/25 00:15 02/15/25 01:39 1 MG Atorvastatin Calcium 40 mg HS PO 02/14/25 22:00 02/16/25 00:57 40 MG Diagnostic Test (Pha) 1 strip IQ4HR 02/14/25 04:00 02/17/25 08:25 1 STRIP Insulin Human Regular IQ4HR SC 02/14/25 04:00 02/17/25 08:46 2 UNITS Dextrose 50 ml UD PRN IV 02/14/25 00:15 Ondansetron HCl 4 mg Q4HP PRN IV 02/14/25 00:15 Acetaminophen 650 mg Q6HP PRN PO 02/14/25 00:30 02/14/25 16:38 650 MG Chlordiazepoxide HCl 25 mg Q6HPRN PRN PO 02/14/25 05:00 02/14/25 20:44 25 MG Lorazepam 1 mg ONCE PRN IV 02/14/25 10:45 02/15/25 13:58 1 MG Lorazepam 1 mg Q2HPRN PRN IV 02/15/25 02:00 02/17/25 08:36 1 MG Laboratory Results Laboratory Tests 02/15/25 06:23 Assessment/Plan Assessment/Plan 59-year-old male presents for evaluation of altered mental status and possible seizure activity. His son reports patient was seen at [facility] and was treated for hyperglycemia greater than 500. The son reports that since then the patient has been acting somewhat altered. He states that the patient is not able to have a full conversation and yesterday patient had what seemed to be a seizure that lasted approximately 20 seconds. Patient used to be a heavy alcoholic drinker and for the past two weeks has been cutting on the alcohol intake. Patient is currently lethargic and slow to respond. No focal deficits. No cardiac or respiratory complaints. Seizure activity ? Alcohol withdrawal Uncontrolled diabetes mellitus Hypertension weakness protein-calorie malnutrition failure to thrive acute metabolic encephalopathy pending evaluation by neurology Plan discussed with: Other (nursing staff) Date of Service: Feb 16, 2025 Billing Provider: HENNY NIÑO DO Common Visit Codes: [id number] INP/OBS CARE(HIGH) HENNY NIÑO DO Feb 17, 2025 12:11
--- NOTE | 2025-02-17 12:11 | DVHPN2 ---
Reviewed: Care Plan, H&P, Labs, Medications Changes from previous H/P or p: No Changes General: Per HPI Objective Vitals Vital Signs Date Time Temp Pulse Resp B/P (MAP) Pulse Ox O2 Delivery O2 Flow Rate FiO2 02/17/25 09:00 98.1 85 16 103/68 (80) 97 98.1 02/17/25 08:00 Room Air* 0 21 Intake/Output Intake and Output 02/17/25 07:00 Intake Total 886 ml Output Total 500 ml Balance 386 ml Intake Oral 886 ml Output Urine Total 500 ml # Voids 2 General Appearance: Alert, Cooperative Cardiovascular: Regular rate, Normal S1, Normal S2 Abdomen: Normal bowel sounds, Soft Medications Current Medications Medications Dose Ordered Sig/Sonny Route Start Time Stop Time Status Last Admin Dose Admin Thiamine HCl 100 mg DAILY PO 02/14/25 10:00 02/17/25 11:19 100 MG Folic Acid 1 mg DAILY PO 02/14/25 10:00 02/17/25 11:19 1 MG Levetiracetam 500 mg BID PO 02/14/25 10:00 02/17/25 11:19 500 MG Lorazepam 1 mg Q5MINP PRN IV 02/14/25 00:15 02/15/25 01:39 1 MG Atorvastatin Calcium 40 mg HS PO 02/14/25 22:00 02/16/25 00:57 40 MG Diagnostic Test (Pha) 1 strip IQ4HR 02/14/25 04:00 02/17/25 08:25 1 STRIP Insulin Human Regular IQ4HR SC 02/14/25 04:00 02/17/25 08:46 2 UNITS Dextrose 50 ml UD PRN IV 02/14/25 00:15 Ondansetron HCl 4 mg Q4HP PRN IV 02/14/25 00:15 Acetaminophen 650 mg Q6HP PRN PO 02/14/25 00:30 02/14/25 16:38 650 MG Chlordiazepoxide HCl 25 mg Q6HPRN PRN PO 02/14/25 05:00 02/14/25 20:44 25 MG Lorazepam 1 mg ONCE PRN IV 02/14/25 10:45 02/15/25 13:58 1 MG Lorazepam 1 mg Q2HPRN PRN IV 02/15/25 02:00 02/17/25 08:36 1 MG Laboratory Results Laboratory Tests 02/15/25 06:23 Assessment/Plan Assessment/Plan 59-year-old male presents for evaluation of altered mental status and possible seizure activity. His son reports patient was seen at [facility] and was treated for hyperglycemia greater than 500. The son reports that since then the patient has been acting somewhat altered. He states that the patient is not able to have a full conversation and yesterday patient had what seemed to be a seizure that lasted approximately 20 seconds. Patient used to be a heavy alcoholic drinker and for the past two weeks has been cutting on the alcohol intake. Patient is currently lethargic and slow to respond. No focal deficits. No cardiac or respiratory complaints. Seizure activity ? Alcohol withdrawal Uncontrolled diabetes mellitus Hypertension weakness protein-calorie malnutrition failure to thrive acute metabolic encephalopathy pending evaluation by neurology Plan discussed with: Patient Date of Service: Feb 17, 2025 Billing Provider: HENNY NIÑO DO Common Visit Codes: [id number] INP/OBS CARE(HIGH) HENNY NIÑO DO Feb 17, 2025 12:11
[2025-02-17 13:00] VITALS: BP 100/64; PULSE 94; RESP 17; TEMP 97.6; O2SAT 97
[2025-02-17 16:51] VITALS: BP 115/70; PULSE 86; RESP 17; TEMP 97.8; O2SAT 100
[2025-02-17 20:00] VITALS: PULSE 95; RESP 19
[2025-02-17 21:00] VITALS: BP 117/75; PULSE 95; RESP 19; TEMP 98.1; O2SAT 99
[2025-02-18] VITALS (8 sets, daily range): BP systolic 110–132; BP diastolic 66–74; PULSE 81–96; RESP 16–19; TEMP 97–98.3; O2SAT 94–100
--- NOTE | 2025-02-18 12:02 | DVHPN2 ---
Subjective Patient is seen and examined at bedside. More alert awake. Reviewed: Care Plan, H&P, Labs, Medications Changes from previous H/P or p: No Changes General: Per HPI Objective Vitals Vital Signs Date Time Temp Pulse Resp B/P (MAP) Pulse Ox O2 Delivery O2 Flow Rate FiO2 02/18/25 09:00 97.2 81 17 121/71 (88) 99 97.2 02/18/25 08:00 Room Air* 0 21 Intake/Output Intake and Output 02/18/25 07:00 Intake Total 1500 ml Output Total 900 ml Balance 600 ml Intake Oral 1500 ml Output Urine Total 900 ml # Voids 2 General Appearance: Alert, Cooperative, No acute distress Lungs: Clear to auscultation, Normal air movement Cardiovascular: Regular rate, Normal S1, Normal S2 Abdomen: Normal bowel sounds, Soft Neuro: Cranial nerves 3-12 NL Psych/Mental Status: Mental status NL Medications Current Medications Medications Dose Ordered Sig/Sonny Route Start Time Stop Time Status Last Admin Dose Admin Thiamine HCl 100 mg DAILY PO 02/14/25 10:00 02/18/25 08:21 100 MG Folic Acid 1 mg DAILY PO 02/14/25 10:00 02/18/25 08:21 1 MG Levetiracetam 500 mg BID PO 02/14/25 10:00 02/18/25 08:21 500 MG Lorazepam 1 mg Q5MINP PRN IV 02/14/25 00:15 02/15/25 01:39 1 MG Atorvastatin Calcium 40 mg HS PO 02/14/25 22:00 02/17/25 22:33 40 MG Diagnostic Test (Pha) 1 strip IQ4HR 02/14/25 04:00 02/18/25 08:22 1 STRIP Insulin Human Regular IQ4HR SC 02/14/25 04:00 02/18/25 08:25 4 UNITS Dextrose 50 ml UD PRN IV 02/14/25 00:15 Ondansetron HCl 4 mg Q4HP PRN IV 02/14/25 00:15 Acetaminophen 650 mg Q6HP PRN PO 02/14/25 00:30 02/14/25 16:38 650 MG Chlordiazepoxide HCl 25 mg Q6HPRN PRN PO 02/14/25 05:00 02/17/25 22:33 25 MG Lorazepam 1 mg ONCE PRN IV 02/14/25 10:45 02/15/25 13:58 1 MG Lorazepam 1 mg Q2HPRN PRN IV 02/15/25 02:00 02/18/25 02:36 1 MG Laboratory Results Laboratory Tests 02/15/25 06:23 Labs and/or images reviewed: Labs reviewed by me Assessment/Plan Assessment/Plan 59-year-old male presents for evaluation of altered mental status and possible seizure activity. His son reports patient was seen at [facility] and was treated for hyperglycemia greater than 500. The son reports that since then the patient has been acting somewhat altered. He states that the patient is not able to have a full conversation and yesterday patient had what seemed to be a seizure that lasted approximately 20 seconds. Patient used to be a heavy alcoholic drinker and for the past two weeks has been cutting on the alcohol intake. Patient is currently lethargic and slow to respond. No focal deficits. No cardiac or respiratory complaints. Seizure activity ? Alcohol withdrawal Uncontrolled diabetes mellitus Hypertension weakness protein-calorie malnutrition failure to thrive acute metabolic encephalopathy Continuing current management. Waiting for neurologist to see the patient. Continuing with Elly HERMAN Waiting for MRI of the brain This medical document was created using an electronic medical record system with [employer] computerized dictation system. Although this document has been carefully reviewed, there may still be some phonetic and typographical errors. These areas are purely typographical due to imperfections of the software programs, and do not reflect any compromise in the patient's medical care. Plan discussed with: Patient Date of Service: Feb 18, 2025 Billing Provider: ALISHA GALICIA MD Common Visit Codes: [id number] INP/OBS CARE(HIGH) ALISHA GALICIA MD Feb 18, 2025 12:02
[2025-02-18] MEDS: HALOPERIDOL LACTATE 5 MG/ML INJ VIAL IM ONE (23:00)
[2025-02-18] MEDS: HALOPERIDOL LACTATE 5 MG/ML INJ VIAL ONE (23:04)
--- NOTE | 2025-02-18 23:16 | DVHPN2 ---
Progress Note - Dictate Date Seen: Feb 18, 2025 Medical Necessity Reason Pt with a Central, PICC or Fol: No Subjective Mr. Snyder is a 59 years old right-handed gentleman with a history of hypertension, diabetes, dyslipidemia, chronic alcohol abuser, he was brought to the [facility] on 02/13/2025 with a chief company of seizure activity I have seen and examined the patient, discussed with his nurse, denise. He is sleeping. He was agitated and with symptoms hallucination according to his nurse, I recommend one dose of Haldol Plasma alcohol, 02/14/2025: <0.3 He was, 02/14/2025: Negative ABG, 02/14/2025: Respiratory alkalosis WBC/HB/PLT/MCV, 02/13/2025, 7.7/12.2/274/88.7 CMP, 02/14/2025: Unremarkable CT head, 02/13/2025: No acute intracranial abnormality vital signs Vital Sign Date Time Temp Pulse Resp B/P (MAP) Pulse Ox O2 Delivery O2 Flow Rate FiO2 02/18/25 21:00 98.3 91 17 120/72 (88) 99 98.3 02/18/25 08:00 Room Air* 0 21 Total Intake and Output 02/17/25 02/17/25 02/18/25 15:00 23:00 07:00 Intake Total 900 ml 600 ml Output Total 900 ml Balance 900 ml -300 ml medications Current Medications Medications Dose Ordered Sig/Sonny Route Start Time Stop Time Status Last Admin Dose Admin Thiamine HCl 100 mg DAILY PO 02/14/25 10:00 02/18/25 08:21 100 MG Folic Acid 1 mg DAILY PO 02/14/25 10:00 02/18/25 08:21 1 MG Levetiracetam 500 mg BID PO 02/14/25 10:00 02/18/25 21:28 500 MG Lorazepam 1 mg Q5MINP PRN IV 02/14/25 00:15 02/15/25 01:39 1 MG Atorvastatin Calcium 40 mg HS PO 02/14/25 22:00 02/18/25 21:28 40 MG Diagnostic Test (Pha) 1 strip IQ4HR 02/14/25 04:00 02/18/25 20:08 1 STRIP Insulin Human Regular IQ4HR SC 02/14/25 04:00 02/18/25 20:09 4 UNITS Dextrose 50 ml UD PRN IV 02/14/25 00:15 Ondansetron HCl 4 mg Q4HP PRN IV 02/14/25 00:15 Acetaminophen 650 mg Q6HP PRN PO 02/14/25 00:30 02/18/25 19:55 650 MG Chlordiazepoxide HCl 25 mg Q6HPRN PRN PO 02/14/25 05:00 02/18/25 22:05 25 MG Lorazepam 1 mg ONCE PRN IV 02/14/25 10:45 02/15/25 13:58 1 MG Lorazepam 1 mg Q2HPRN PRN IV 02/15/25 02:00 02/18/25 22:05 1 MG objective General: the patient is well developed and nourished. No acute distress. MENTAL STATUS: Subjective SPEECH, LANGUAGE, HIGHER CORTICAL FUNCTION: no aphasia or dysathria. CRANIAL NERVES: Pupils are equal, round and reactive. EOMs full and conjugate. No nystagmus. Facial sensation intact in all three divisions bilaterally. Mandibular strength intact. Facial muscles symmetrical and strength intact. SENSATION: Sensation to touch and pinprick is normal. MOTOR: Normal tone in the upper and lower extremity. Normal muscle bulk. No fasciculations. No abnormal movements or posturing. Muscle strength of the major groups in the extremities is 5/5. REFLEXES: Deep tendon reflexes are symmetrical. No pathological reflexes. CEREBELLAR/COORDINATION: Finger to nose is normal bilaterally. GAIT/STATION: deferred. laboratory and microbiology Laboratory Tests 02/15/25 06:23 Test 02/15/25 06:23 Range/Units Serum Glucose 168 H 74-106 mg/dL Problem List Episodic event Grand mal seizure Alcohol withdrawal seizure Status epileptics Wernicke's encephalopathy Cognitive dysfunction, ? Korsakoff disease Nystagmus, ? secondary to Wernicke's encephalopathy Assessment/Plan Monitoring Supportive treatment Telemetry UDS EEG MRI brain scan (could not low flat for MRI on 02/15/2025) A trial of Remeron 15 mg daily in the evening Thiamine supplementation Folic acid supplementation Keppra for the time being Ativan for seizure breakthrough Quit alcohol completely More recommendation per clinical course This medical document was created using an electronic medical record system with [employer] dictation system. Although this document has been carefully reviewed, there may still be some phonetic and typographical errors. These areas are purely typographical due to imperfections of the software programs, and do not reflect any compromise in the patient's medical care. Prognosis poor Dietary Evaluation Review Comments: 1. Disagree with current diet, change to 75 GM CHO/meal and remove cardiac modifier 2. Agree w/ thiamine, folate supplementation; add daily MVI 3. Monitor PO intake/mentation/behavior; assistance at meal times as needed 4. Poor glycemic control; adjust ss insulin and consider adding latnus to maintain BG <180 mg/dl while inpatient Expected Outcomes/Goals: Adequate intakes, improved glycemic control. Plan discussed with: Other CLEMENTINA LYNN MD Feb 18, 2025 23:16
[2025-02-19 08:00] VITALS: O2SAT 94
[2025-02-19 09:00] VITALS: BP 123/77; PULSE 92; RESP 22; TEMP 97.9; O2SAT 99
[2025-02-19] MEDS ORDERED: MIRTAZAPINE 30 MG TAB PO SCH (10:00)
--- NOTE | 2025-02-19 11:52 | DVHPN2 ---
Subjective Patient is seen and examined at bedside. More alert awake. Waiting for MRI of the brain. Last attempt was in 02/15 patient can not lay flat and no MRI had been obtained. Reviewed: Care Plan, H&P, Labs, Medications Changes from previous H/P or p: No Changes General: Per HPI Objective Vitals Vital Signs Date Time Temp Pulse Resp B/P (MAP) Pulse Ox O2 Delivery O2 Flow Rate FiO2 02/19/25 08:00 94 Room Air* 0 21 02/18/25 21:00 98.3 91 17 120/72 (88) 98.3 Intake/Output Intake and Output 02/19/25 07:00 Intake Total 600 ml Balance 600 ml Intake Oral 600 ml # Voids 5 # Bowel Movements 1 General Appearance: Alert, Cooperative, No acute distress Lungs: Clear to auscultation, Normal air movement Cardiovascular: Regular rate, Normal S1, Normal S2 Abdomen: Normal bowel sounds, Soft Neuro: Cranial nerves 3-12 NL Psych/Mental Status: Mental status NL Medications Current Medications Medications Dose Ordered Sig/Sonny Route Start Time Stop Time Status Last Admin Dose Admin Thiamine HCl 100 mg DAILY PO 02/14/25 10:00 02/19/25 08:55 100 MG Folic Acid 1 mg DAILY PO 02/14/25 10:00 02/19/25 08:55 1 MG Levetiracetam 500 mg BID PO 02/14/25 10:00 02/19/25 08:55 500 MG Lorazepam 1 mg Q5MINP PRN IV 02/14/25 00:15 02/15/25 01:39 1 MG Atorvastatin Calcium 40 mg HS PO 02/14/25 22:00 02/18/25 21:28 40 MG Diagnostic Test (Pha) 1 strip IQ4HR 02/14/25 04:00 02/19/25 08:55 1 STRIP Insulin Human Regular IQ4HR SC 02/14/25 04:00 02/19/25 09:01 3 UNITS Dextrose 50 ml UD PRN IV 02/14/25 00:15 Ondansetron HCl 4 mg Q4HP PRN IV 02/14/25 00:15 Acetaminophen 650 mg Q6HP PRN PO 02/14/25 00:30 02/18/25 19:55 650 MG Chlordiazepoxide HCl 25 mg Q6HPRN PRN PO 02/14/25 05:00 02/18/25 22:05 25 MG Lorazepam 1 mg ONCE PRN IV 02/14/25 10:45 02/15/25 13:58 1 MG Lorazepam 1 mg Q2HPRN PRN IV 02/15/25 02:00 02/19/25 05:20 1 MG Mirtazapine 15 mg DAILY PO 02/19/25 10:00 Cancel Mirtazapine 15 mg HS PO 02/19/25 22:00 Laboratory Results Laboratory Tests 02/15/25 06:23 Labs and/or images reviewed: Labs reviewed by me Assessment/Plan Assessment/Plan 59-year-old male presents for evaluation of altered mental status and possible seizure activity. His son reports patient was seen at [facility] and was treated for hyperglycemia greater than 500. The son reports that since then the patient has been acting somewhat altered. He states that the patient is not able to have a full conversation and yesterday patient had what seemed to be a seizure that lasted approximately 20 seconds. Patient used to be a heavy alcoholic drinker and for the past two weeks has been cutting on the alcohol intake. Patient is currently lethargic and slow to respond. No focal deficits. No cardiac or respiratory complaints. Seizure activity ? Alcohol withdrawal Uncontrolled diabetes mellitus Hypertension weakness protein-calorie malnutrition failure to thrive acute metabolic encephalopathy Continuing current management. Waiting for neurologist to see the patient. Continuing with Elly HERMAN Waiting for MRI of the brain This medical document was created using an electronic medical record system with [employer] computerized dictation system. Although this document has been carefully reviewed, there may still be some phonetic and typographical errors. These areas are purely typographical due to imperfections of the software programs, and do not reflect any compromise in the patient's medical care. Plan discussed with: Patient, Spouse Date of Service: Feb 19, 2025 Billing Provider: ALISHA GALICIA MD Common Visit Codes: [id number] INP/OBS CARE(HIGH) ALISHA GALICIA MD Feb 19, 2025 11:52
[2025-02-19 12:44] VITALS: BP 126/72; PULSE 78; RESP 98; TEMP 97.9; O2SAT 19
[2025-02-19 16:39] VITALS: BP 119/74; PULSE 73; RESP 20; TEMP 98; O2SAT 90
[2025-02-19 21:00] VITALS: BP 135/79; PULSE 87; RESP 17; TEMP 97.5; O2SAT 99
[2025-02-19] MEDS: MIRTAZAPINE 30 MG TAB PO SCH (21:10)
--- NOTE | 2025-02-19 22:41 | DVHPN2 ---
Progress Note - Dictate Date Seen: Feb 19, 2025 Medical Necessity Reason Pt with a Central, PICC or Fol: No Subjective Mr. Snyder is a 59 years old right-handed gentleman with a history of hypertension, diabetes, dyslipidemia, chronic alcohol abuser, he was brought to the [facility] on 02/13/2025 with a chief company of seizure activity I have seen and examined the patient, discussed with his nurse, denise. He is sleeping now According to his nurse and ckter, thought he is as confused as previously, overall the patient was doing better today, he was no symptoms hallucination, or agitation, he received Remeron, he was received a dose of Ativan this evening UDS, 02/14/2025: Negative Plasma alcohol, 02/14/2025: <0.3 He was, 02/14/2025: Negative ABG, 02/14/2025: Respiratory alkalosis WBC/HB/PLT/MCV, 02/13/2025, 7.7/12.2/274/88.7 CMP, 02/14/2025: Unremarkable CT head, 02/13/2025: No acute intracranial abnormality vital signs Vital Sign Date Time Temp Pulse Resp B/P (MAP) Pulse Ox O2 Delivery O2 Flow Rate FiO2 02/19/25 21:00 97.5 87 17 135/79 (97) 99 97.5 02/19/25 08:00 Room Air* 0 21 Total Intake and Output 02/18/25 02/18/25 02/19/25 15:00 23:00 07:00 Intake Total 500 ml 100 ml Balance 500 ml 100 ml medications Current Medications Medications Dose Ordered Sig/Sonny Route Start Time Stop Time Status Last Admin Dose Admin Thiamine HCl 100 mg DAILY PO 02/14/25 10:00 02/19/25 08:55 100 MG Folic Acid 1 mg DAILY PO 02/14/25 10:00 02/19/25 08:55 1 MG Levetiracetam 500 mg BID PO 02/14/25 10:00 02/19/25 21:10 500 MG Lorazepam 1 mg Q5MINP PRN IV 02/14/25 00:15 02/15/25 01:39 1 MG Atorvastatin Calcium 40 mg HS PO 02/14/25 22:00 02/19/25 21:10 40 MG Diagnostic Test (Pha) 1 strip IQ4HR 4/17/25 04:00 02/19/25 19:43 1 STRIP Insulin Human Regular IQ4HR SC 02/14/25 04:00 02/19/25 19:44 3 UNITS Dextrose 50 ml UD PRN IV 02/14/25 00:15 Ondansetron HCl 4 mg Q4HP PRN IV 02/14/25 00:15 Acetaminophen 650 mg Q6HP PRN PO 02/14/25 00:30 02/18/25 19:55 650 MG Chlordiazepoxide HCl 25 mg Q6HPRN PRN PO 02/14/25 05:00 02/19/25 19:44 25 MG Lorazepam 1 mg ONCE PRN IV 02/14/25 10:45 02/15/25 13:58 1 MG Lorazepam 1 mg Q2HPRN PRN IV 02/15/25 02:00 02/19/25 20:43 1 MG Mirtazapine 15 mg DAILY PO 02/19/25 10:00 Cancel Mirtazapine 15 mg HS PO 02/19/25 22:00 02/19/25 21:10 15 MG objective General: the patient is well developed and nourished. No acute distress. MENTAL STATUS: Subjective SPEECH, LANGUAGE, HIGHER CORTICAL FUNCTION: no aphasia or dysathria. CRANIAL NERVES: Pupils are equal, round and reactive. EOMs full and conjugate. No nystagmus. Facial sensation intact in all three divisions bilaterally. Mandibular strength intact. Facial muscles symmetrical and strength intact. SENSATION: Sensation to touch and pinprick is normal. MOTOR: Normal tone in the upper and lower extremity. Normal muscle bulk. No fasciculations. No abnormal movements or posturing. Muscle strength of the major groups in the extremities is 5/5. REFLEXES: Deep tendon reflexes are symmetrical. No pathological reflexes. CEREBELLAR/COORDINATION: Finger to nose is normal bilaterally. GAIT/STATION: deferred. laboratory and microbiology Laboratory Tests 02/15/25 06:23 Test 02/15/25 06:23 Range/Units Serum Glucose 168 H 74-106 mg/dL Problem List Episodic event Grand mal seizure Alcohol withdrawal seizure Status epileptics Wernicke's encephalopathy Cognitive dysfunction, ? Korsakoff disease Nystagmus, ? secondary to Wernicke's encephalopathy Assessment/Plan Monitoring Supportive treatment Telemetry EEG MRI brain scan (could not low flat for MRI on 02/15/2025) Avoid Ativan if possible Remeron 15 mg daily in the evening Thiamine supplementation Folic acid supplementation Keppra for the time being Ativan for seizure breakthrough Quit alcohol completely More recommendation per clinical course This medical document was created using an electronic medical record system with [employer] dictation system. Although this document has been carefully reviewed, there may still be some phonetic and typographical errors. These areas are purely typographical due to imperfections of the software programs, and do not reflect any compromise in the patient's medical care. Prognosis poor Dietary Evaluation Review Comments: 1. Disagree with current diet, change to 75 GM CHO/meal and remove cardiac modifier 2. Agree w/ thiamine, folate supplementation; add daily MVI 3. Monitor PO intake/mentation/behavior; assistance at meal times as needed 4. Poor glycemic control; adjust ss insulin and consider adding latnus to maintain BG <180 mg/dl while inpatient Expected Outcomes/Goals: Adequate intakes, improved glycemic control. Plan discussed with: Other CLEMENTINA LYNN MD Feb 19, 2025 22:41
--- NOTE | 2025-02-20 00:44 | DVHEEG2 ---
Neurology EEG Procedural Note Procedural Note EXAM DATE: 02/19/2025 REFERRING DOCTOR: Dr. Lynn TECHNIQUE: Eighteen channels of EEG, 2 channels of EOG, and 1 channel of EKG were recorded using the International 10/20 system. CLINICAL DATA: The patient was referred for an EEG evaluation for the evidence of seizure disorder. MEDICATIONS: See the chart BACKGROUND ACTIVITY: While the patient was awake, the background activity consisted of well regulated 13Hz rhythmic waveforms, symmetrically distributed over both posterior quadrants and was reactive to external stimuli, intermixed with this was diffuse low amplitude rhythmic beta activity over both areas symptoms ACTIVATION: Hyperventilation: Not done Photic Stimulation: Not done Sleep: Not seen IMPRESSION: This is an essentially normal EEG. No focal, lateralized, or epileptiform features are noted. If clinically indicated to rule out a seizure disorder, recommend repeat EEG with sleep deprivation. The diffuse low amplitude bilateral rhythmic beta activity is likely medication effects with benzodiazepine and phenobarbital The EKG channel showed a regular heart rate of 78/min[place] [address] CLEMENTINA LYNN MD Feb 20, 2025 00:44
[2025-02-20 01:00] VITALS: BP 133/68; PULSE 88; RESP 20; TEMP 98.4; O2SAT 99
[2025-02-20 05:00] VITALS: BP 142/81; PULSE 90; RESP 19; TEMP 98.2; O2SAT 98
[2025-02-20 08:00] VITALS: PULSE 94; O2SAT 94
[2025-02-20 08:53] VITALS: BP 150/82; PULSE 91; RESP 18; TEMP 97.7; O2SAT 100
--- NOTE | 2025-02-20 10:13 | DVHPN2 ---
Progress Note - Dictate Date Seen: Feb 20, 2025 Medical Necessity Reason Pt with a Central, PICC or Fol: No Subjective Mr. Snyder is a 59 years old right-handed gentleman with a history of hypertension, diabetes, dyslipidemia, chronic alcohol abuser, he was brought to the [facility] on 02/13/2025 with a chief company of seizure activity I have seen and examined the patient, discussed with his nurse, sitter. in the room with him. He was doing fine, alert, only oriented to person, he thinks he is at home Sick have night, the patient was had hallucination and agitation UDS, 02/14/2025: Negative Plasma alcohol, 02/14/2025: <0.3 He was, 02/14/2025: Negative ABG, 02/14/2025: Respiratory alkalosis WBC/HB/PLT/MCV, 02/13/2025, 7.7/12.2/274/88.7 CMP, 02/14/2025: Unremarkable CT head, 02/13/2025: No acute intracranial abnormality vital signs Vital Sign Date Time Temp Pulse Resp B/P (MAP) Pulse Ox O2 Delivery O2 Flow Rate FiO2 02/20/25 08:53 97.7 91 18 150/82 (104) 100 97.7 02/19/25 20:00 Room Air* 0 21 Total Intake and Output 02/19/25 02/19/25 02/20/25 15:00 23:00 07:00 Intake Total 600 ml 1250 ml Output Total 500 ml 1200 ml Balance 100 ml 50 ml medications Current Medications Medications Dose Ordered Sig/Sonny Route Start Time Stop Time Status Last Admin Dose Admin Thiamine HCl 100 mg DAILY PO 02/14/25 10:00 02/20/25 09:02 100 MG Folic Acid 1 mg DAILY PO 02/14/25 10:00 02/20/25 09:01 1 MG Levetiracetam 500 mg BID PO 02/14/25 10:00 02/20/25 09:02 500 MG Lorazepam 1 mg Q5MINP PRN IV 02/14/25 00:15 02/15/25 01:39 1 MG Atorvastatin Calcium 40 mg HS PO 02/14/25 22:00 02/19/25 21:10 40 MG Diagnostic Test (Pha) 1 strip IQ4HR 02/14/25 04:00 02/20/25 08:00 1 STRIP Insulin Human Regular IQ4HR SC 02/14/25 04:00 02/20/25 09:07 4 UNITS Dextrose 50 ml UD PRN IV 02/14/25 00:15 Ondansetron HCl 4 mg Q4HP PRN IV 02/14/25 00:15 Acetaminophen 650 mg Q6HP PRN PO 02/14/25 00:30 02/18/25 19:55 650 MG Chlordiazepoxide HCl 25 mg Q6HPRN PRN PO 02/14/25 05:00 02/20/25 04:56 25 MG Lorazepam 1 mg ONCE PRN IV 02/14/25 10:45 02/15/25 13:58 1 MG Lorazepam 1 mg Q2HPRN PRN IV 02/15/25 02:00 02/20/25 01:18 1 MG Mirtazapine 15 mg DAILY PO 02/19/25 10:00 Cancel Mirtazapine 15 mg HS PO 02/19/25 22:00 02/19/25 21:10 15 MG objective General: the patient is well developed and nourished. No acute distress. MENTAL STATUS: Subjective SPEECH, LANGUAGE, HIGHER CORTICAL FUNCTION: no aphasia or dysathria. CRANIAL NERVES: Pupils are equal, round and reactive. EOMs full and conjugate. No nystagmus. Facial sensation intact in all three divisions bilaterally. Mandibular strength intact. Facial muscles symmetrical and strength intact. SENSATION: Sensation to touch and pinprick is normal. MOTOR: Normal tone in the upper and lower extremity. Normal muscle bulk. No fasciculations. No abnormal movements or posturing. Muscle strength of the major groups in the extremities is 5/5. REFLEXES: Deep tendon reflexes are symmetrical. No pathological reflexes. CEREBELLAR/COORDINATION: Finger to nose is normal bilaterally. GAIT/STATION: deferred. laboratory and microbiology Laboratory Tests 02/15/25 06:23 Test 02/15/25 06:23 Range/Units Serum Glucose 168 H 74-106 mg/dL Problem List Episodic event Grand mal seizure Alcohol withdrawal seizure Status epileptics Wernicke's encephalopathy Cognitive dysfunction, ? Korsakoff disease Nystagmus, ? secondary to Wernicke's encephalopathy Assessment/Plan Monitoring Supportive treatment Telemetry EEG MRI brain scan (could not low flat for MRI on 02/15/2025) Avoid Ativan if possible Increase the Remeron to 30 mg daily in the evening Thiamine supplementation Folic acid supplementation Keppra for the time being Ativan for seizure breakthrough Quit alcohol completely More recommendation per clinical course This medical document was created using an electronic medical record system with [employer] dictation system. Although this document has been carefully reviewed, there may still be some phonetic and typographical errors. These areas are purely typographical due to imperfections of the software programs, and do not reflect any compromise in the patient's medical care. Prognosis poor Dietary Evaluation Review Comments: 1. Disagree with current diet, change to 75 GM CHO/meal and remove cardiac modifier 2. Agree w/ thiamine, folate supplementation; add daily MVI 3. Monitor PO intake/mentation/behavior; assistance at meal times as needed 4. Poor glycemic control; adjust ss insulin and consider adding latnus to maintain BG <180 mg/dl while inpatient Expected Outcomes/Goals: Adequate intakes, improved glycemic control. Plan discussed with: Spouse, Other CLEMENTINA LYNN MD Feb 20, 2025 10:13
[2025-02-20] MEDS ORDERED: MIR30T PO (11:13)
[2025-02-20] MEDS ORDERED: METF-370 PO (11:19)
--- NOTE | 2025-02-20 11:24 | DVHDS2 ---
Discharge Summary Date of Admission Feb 13, 2025 at 23:40 Date of Discharge: Feb 20, 2025 Admitting Diagnosis Seizure activity ? Alcohol withdrawal Uncontrolled diabetes mellitus Hypertension weakness protein-calorie malnutrition failure to thrive acute metabolic encephalopathy Labs/Diagnostic Data: Laboratory Results Test 02/20/25 04:51 02/15/25 06:23 02/14/25 14:19 02/14/25 06:27 POC Glucose 270 mg/dl (70-106) White Blood Count 7.8 10^3/uL (4.4-10.8) Red Blood Count 4.64 10^6/uL (4.5-5.90) Hemoglobin 13.8 g/dL (13.5-17.5) Hematocrit 40.8 % (41.0-53.0) Mean Corpuscular Volume 87.9 fL (80.0-100.0) Mean Corpuscular Hemoglobin 29.7 pg (28.0-32.0) Mean Corpuscular Hemoglobin Concent 33.8 g/dL (32.0-36.0) Red Cell Distribution Width 13.0 % (11.8-14.3) Platelet Count 285 10^3/uL (140-450) Mean Platelet Volume 7.9 fL (6.9-10.8) Neutrophils (%) (Auto) 63.4 % (37.0-80.0) Lymphocytes (%) (Auto) 27.8 % (10.0-50.0) Monocytes (%) (Auto) 7.3 % (0.0-12.0) Eosinophils (%) (Auto) 0.9 % (0.0-7.0) Basophils (%) (Auto) 0.6 % (0.0-2.0) Neutrophils # (Auto) 5.0 10 ^3/uL (1.6-8.6) Lymphocytes # (Auto) 2.2 10 ^3/uL (0.4-5.4) Monocytes # (Auto) 0.6 10 ^3/uL (0-1.3) Eosinophils # (Auto) 0.1 10 ^3/uL (0-0.8) Basophils # (Auto) 0.1 10 ^3/uL (0-0.2) Nucleated Red Blood Cells 0.1 % Sodium Level 136 mmol/L (136-145) Potassium Level 3.9 mmol/L (3.5-5.1) Chloride Level 101 mmol/L (98-107) Carbon Dioxide Level 25 mmol/L (20-31) Anion Gap 10 (5-15) Blood Urea Nitrogen 21 mg/dL (9-23) Creatinine 1.05 mg/dL (0.700-1.30) Glomerular Filtration Rate Calc 81 mL/min (>90) BUN/Creatinine Ratio 20.0 (10.0-20.0) Serum Glucose 168 mg/dL (74-106) Calcium Level 10.4 mg/dL (8.7-10.4) Urine Opiates Screen Neg (NEGATIVE) Urine Fentanyl Screen Neg (NEGATIVE) Urine Barbiturates Screen Neg (NEGATIVE) Urine Phencyclidine Screen Neg (NEGATIVE) Urine Amphetamines Screen Neg (NEGATIVE) Urine Benzodiazepines Screen Neg (NEGATIVE) Urine Cocaine Screen Neg (NEGATIVE) Urine Cannabinoids Screen Neg (NEGATIVE) Total Bilirubin 1.0 mg/dL (0.2-1.0) Aspartate Amino Transferase (AST) 14 U/L (13-40) Alanine Aminotransferase (ALT) 23 U/L (7-40) Alkaline Phosphatase 88 U/L (46-116) Total Protein 6.2 g/dL (5.7-8.2) Albumin 4.0 g/dL (3.2-4.8) Test 02/14/25 00:39 02/13/25 19:23 Blood Gas Specimen Type Arterial Blood Gas Sample Site Left radial Blood Gas Patient Temperature 37.0 Arterial Blood Date Drawn [id number] Arterial Blood pH 7.458 (7.350-7.450) Arterial Blood Partial Pressure CO2 29.1 mmHg (35.0-48.0) Arterial Blood Partial Pressure O2 83.8 mmHg (83.0-108.0) Arterial Blood HCO3 20.1 mmol/L (21.0-28.0) Arterial Blood Oxygen Saturation 95.7 % (94.0-98.0) Arterial Blood Base Excess -2.7 mmol/L (-2.0-3.0) Arterial Blood Oxyhemoglobin 94.7 % (94.0-98.0) Arterial Blood Carboxyhemoglobin 0.8 % (0.5-1.5) Arterial Blood Methemoglobin 0.2 % (0.0-1.5) Greg Test Yes Blood Gas Total Hemoglobin 12.00 g/dL (13.5-17.5) Blood Gas Liter Flow 0.00 Blood Gas Modality Room air FiO2 % 21.0 Beta-Hydroxybutyric Acid 0.210 mmol/L (< 0.4) Plasma/Serum Blood Alcohol < 3.0 mg/dL (<10) Other Laboratory Tests 02/15/25 06:23 Brief Hx & Hospital Course: This is a 59 years old male with no known past medical history come to emergency department because of altered mental status and possible seizure activity. The patient's son at bedside told ER physician that the patient has been seen in [facility] and was treated for hypoglycemia with a blood glucose greater than 500. The patient was discharged home and since then he had been acting somewhat alterred. The patient apparently unable to complete a sentence in seemed to have seizure lasts about 20 seconds at home so they brought him into emergency department. The patient used to be a heavy alcoholic drinker and the past two weeks has been cutting down alcohol intake because he was in and out of the hospital. The patient was admitted. The patient was treated for alcohol withdrawal and seizure. The patient was put on Keppra IV. The patient was put on Ativan. The patient was put on banana bag. Neurologist see the patient. CT head done and showed no acute process. MRI was supposed to be done however patient can not lay flat attempts MRI to times unsuccessful. Patient had no seizure activity in the hospital. The patient does have hallucination but resolved today. I discussed with Dr. New, neurologist and he recommended to discharge the patient home. Advised the patient to have a MRI of the brain outpatient when he can lay flat. Advised the patient to stop drinking alcohol. Advised the patient to follow up with primary care physician 1-2 weeks. Activity as tolerated. Diet per home diet. Physical exam: HEENT: Normocephalic atraumatic pupils equal react to light and accommodation. Extraocular muscles intact, conjunctiva pink, oropharynx moist, no thrush, no exudate. Lymphatic: No lymphadenopathy Cardiovascular exam: S1, S2 was heard. No murmurs, rubs, gallops Lung: Clear on auscultation bilaterally, no wheeze, rale, rhonchi. GI: Abdominal soft, nondistended, nontenderness, positive bowel sounds. Extremity: No crepitus, cyanosis, edema. Pedal pulses present bilateral. Full range of motion. Skin: Normal turgor, no rash. Psych: Alert, oriented x3. Neurology: No focal deficits, cranial nerve II to XII grossly intact. This medical document was created using an electronic medical record system with [employer] direct computerized dictation system. Although this document has been carefully reviewed, there may still be some phonetic and typographical errors. These areas are purely typographical due to imperfections of the software programs, and do not reflect any compromise in the patient's medical care. Condition at Discharge: Stable Final Diagnosis/Problems List hallucination Seizure activity ? Alcohol withdrawal Uncontrolled diabetes mellitus Hypertension weakness protein-calorie malnutrition failure to thrive acute metabolic encephalopathy Discharge Disposition: Home Discharge Instruct/Medications Diet: Consistent carbohydrate, Cardiac 2g Na,low cholest Activity: No Restrictions, As Tolerated Follow Up/Referral: pcp 1-2 weeks Medications: see med list. Discharge Statement: "Patient was advised to return to the ER or call 911 if any headaches, dizziness, shortness of breath, chest pain, abdominal pain, bleeding, fevers, or worsening of medical condition. Patient was counseled about treatment plan, medications, possible side effects, patientverbalized understanding. All questions were answered to the best of my ability. This discharge took greater then 30 minutes in planning, reviewing documentation, counseling the patient, and discussing with other team members." ASSESSMENT ASSESSMENT Assessment hallucination Date of Service: Feb 20, 2025 Billing Provider: ALISHA GALICIA MD Common Visit Codes: 52381-AMI/OBS DISCH DAY >30min ALISHA GALICIA MD Feb 20, 2025 11:24
[2025-02-20] MEDS: MIRTAZAPINE 30 MG TAB PO SCH (11:58)
[2025-02-20 12:38] VITALS: BP 141/76; PULSE 94; RESP 18; TEMP 98.4; O2SAT 95
[2025-02-20 14:16] VITALS: BP 141/76; PULSE 94; RESP 18; TEMP 98.4; O2SAT 95
== END 2025-02-20 15:00 | disposition home or self-care (01) | DRG 53 ==
LOC: ER 19:08 → EDBD 19:08 → OVERFLOW 23:40 → EAST 02-14 18:05
PROVIDERS: ADMIT Internal Medicine; ATTEND Internal Medicine
DX: G40.409 Other generalized epilepsy and epileptic syndromes, not intractable, without status epilepticus (principal); E87.3 Alkalosis; E44.0 Moderate protein-calorie malnutrition; E51.2 Wernicke's encephalopathy; R62.7 Adult failure to thrive; E11.65 Type 2 diabetes mellitus with hyperglycemia; F10.230 Alcohol dependence with withdrawal, uncomplicated; E78.5 Hyperlipidemia, unspecified; I10 Essential (primary) hypertension; Z68.34 Body mass index [BMI] 34.0-34.9, adult
CPT/HCPCS: 36415; 36600; 70450; 71045; 80048; 80053; 80307; 80320; 82010; 82805; 82962; 85025; 93005; 95819; 96365; 97116; 97162; 97530; G0378; J1815